=== PATIENT | female | born 1965 | race Caucasian/White ===

== ENCOUNTER 2018-07-16 06:49 | Day surgery (SDC) ==
[2018-07-16] MEDS: TETRACAINE 0.5% UNIT-DOSE OP PRN ×2 (07:30→08:00)
[2018-07-16] MEDS: BETADINE OPTH PREP OP PRN ×2 (07:30→08:00)
[2018-07-16] MEDS: CYCLOGYL 2% OPTH OP PRN ×3 (07:31→07:41)
[2018-07-16] MEDS ORDERED: ZOFRAN 4 MG/2 ML IVP ONE (07:38)
[2018-07-16] MEDS ORDERED: LIDOCAINE 1% 20 ML MDV ID STA (07:38)
[2018-07-16] MEDS ORDERED: BRIMONIDINE TARTRATE 0.2% OPTH SOL OP PRN (07:38)
[2018-07-16] MEDS ORDERED: VERSED ONE (08:00)
[2018-07-16] MEDS ORDERED: ZOFRAN 4 MG/2 ML ONE (08:00)
[2018-07-16] MEDS ORDERED: DIPRIVAN 20 ML VIAL IVP ONE (08:00)
[2018-07-16] MEDS: BSS WITH EPINEPHRINE OP ONE ×2 (08:07→08:11)
[2018-07-16] MEDS: DEX-MOXI-KETOR OPTH INJ 1/0.5/0.4 MG/ML IO ONE ×2 (08:08→08:11)
[2018-07-16] MEDS: LIDOCAINE 1%/PHENYLEPHRINE 1.5% BSS (SURGERY) INTRAOCULA ONE ×2 (08:08→08:11)
[2018-07-16 13:31] VITALS: TEMP 98.7
[2018-07-18 14:16] VITALS: BP 125/78
== END 2018-07-16 08:55 | disposition home or self-care (01) ==
LOC: SURG 06:49
PROVIDERS: ATTEND Ophthalmology
DX: H25.11 Age-related nuclear cataract, right eye (principal)

== ENCOUNTER 2018-07-29 06:12 | Day surgery (SDC) ==
[2018-07-29] MEDS: BETADINE OPTH PREP OP PRN ×2 (06:20→07:05)
[2018-07-29] MEDS: TETRACAINE 0.5% UNIT-DOSE OP PRN ×2 (06:20→07:05)
[2018-07-29] MEDS: CYCLOGYL 2% OPTH OP PRN ×3 (06:21→06:31)
[2018-07-29] MEDS ORDERED: ZOFRAN 4 MG/2 ML ONE (07:00)
[2018-07-29] MEDS ORDERED: VERSED ONE (07:00)
[2018-07-29] MEDS ORDERED: DIPRIVAN 20 ML VIAL IVP ONE (07:00)
[2018-07-29] MEDS ORDERED: LIDOCAINE 1% 20 ML MDV ID STA (07:02)
[2018-07-29] MEDS ORDERED: LIDOCAINE 1%/PHENYLEPHRINE 1.5% BSS (SURGERY) INTRAOCULA ONE (07:02)
[2018-07-29] MEDS ORDERED: BSS WITH EPINEPHRINE OP ONE (07:02)
[2018-07-29] MEDS ORDERED: ZOFRAN 4 MG/2 ML IVP ONE (07:02)
[2018-07-29] MEDS ORDERED: BRIMONIDINE TARTRATE 0.2% OPTH SOL OP PRN (07:02)
[2018-07-29] MEDS ORDERED: DEX-MOXI-KETOR OPTH INJ 1/0.5/0.4 MG/ML IO ONE (07:02)
[2018-07-30 14:36] VITALS: BP 132/67
== END 2018-07-29 07:45 | disposition home or self-care (01) ==
LOC: SURG 06:12
PROVIDERS: ATTEND Ophthalmology
DX: H25.12 Age-related nuclear cataract, left eye (principal)